=== PATIENT | female | born 2000 | race Two or more races ===

== ENCOUNTER → 2023-08-22 | Emergency (ER) | payer OTHER ==
[~2023-08-22] VITALS: Ht 172.7 cm; Wt 65.8 kg
[~2023-08-22] MED LIST: ACETAMINOPHEN 500 MG GEL..CAP PO STA; CEFADROXIL500 MG PO; CEFTRIAXONE SODIUM 1,000 MG VIAL IM STA; IBUprofen 100 MG/5 ML-120ML ML PO STA; TETANUS & DIPHTHERIA TOX,ADULT 0.5 ML VIAL IM STA
== END | disposition home or self-care (01) ==
LOC: ER 17:17
DX: S60.512A Abrasion of left hand, initial encounter (principal); S60.511A Abrasion of right hand, initial encounter; S80.212A Abrasion, left knee, initial encounter; S80.211A Abrasion, right knee, initial encounter; S50.312A Abrasion of left elbow, initial encounter; S50.311A Abrasion of right elbow, initial encounter; W05.2XXA Fall from non-moving motorized mobility scooter, initial encounter; Y93.I9 Activity, other involving external motion; Y92.413 State road as the place of occurrence of the external cause